=== PATIENT | female | born 1995 | race Hispanic/Latino ===

== ENCOUNTER → 2020-04-04 11:48 | Outpatient (CLI) | payer OTHER, SELFPAY ==
--- NOTE | 2020-04-04 11:49 | DI.US.S_ITS ---
PROCEDURE: US OB <= 14 WEEKS FETUS INDICATIONS: Initial US for Dating and Viability please OUTSIDE/PRIOR DATING DATA: Last menstrual period (LMP): 02/12/2020. LMP-based estimated date of delivery (KADE): 11/18/2020. First dating scan (date and location): 04/04/2020. Estimated date of delivery (KADE) from first dating scan: 11/23/2020. TECHNIQUE: Real-time scanning was performed of the fetus and maternal pelvic organs, with image documentation. COMPARISON: None. FINDINGS: Embryo: There is single intrauterine gestational sac with fetus seen. heart rate is 122 beats per minute. Ortley-rump length measures 7.9 mm. Estimated gestational age is 6 weeks, 5 days. Normal appearing yolk sac is seen. Measurement variability in dating: +/- 4 weeks by LMP, +/- 7 days by mean sac diameter (use before 6 weeks gestation if crown-rump length not able to be measured), +/- 5 days by crown-rump length (up to 8 weeks 6 days gestation), +/- 7 days by crown-rump length (up to 13 weeks 6 days gestation). Maternal organs: Right ovary is within normal limits. 3.4 x 2.4 x 2.8 cm possible corpus luteal cyst in left ovary is seen. IMPRESSION: 1. Single live intrauterine with fetus and yolk sac seen. heart rate is 122 beats per minute. Estimated gestational age is 6 weeks, 5 days. 2. Possible corpus luteal cyst in left ovary as above. Dictated by: Jacky Moreno M.D. on 04/04/2020 at 13:47 Approved by: Jacky Moreno M.D. on 04/04/2020 at 13:50
== END ==
PROVIDERS: Referring Provider Family Medicine; Visit Provider Family Medicine
DX: Z34.01 Encounter for supervision of normal first pregnancy, first trimester (principal); Z3A.01 Less than 8 weeks gestation of pregnancy
CPT/HCPCS: 76801

== ENCOUNTER → 2020-04-17 14:19 | Outpatient (CLI) | payer OTHER, SELFPAY ==
[2020-04-17 14:59] LABS: Appearance Urine UA CLEAR; Bilirubin Urine UA NEGATIVE (NEGATIVE); Color Urine UA YELLOW; Glucose Urine UA NEGATIVE (Negative); Ketones Urine UA NEGATIVE (NEGATIVE); Leukocyte Esterase Urine UA NEGATIVE (NEGATIVE); Nitrite Urine UA NEGATIVE (Negative); Occult Blood Urine UA NEGATIVE (Negative); Protein Urine UA NEGATIVE (Negative); Specific Gravity Urine UA 1.015 (1.000-1.035); Urobilinogen Urine UA 0.2 E.U./dL (0.2)
[2020-04-17 15:29] LABS: Add Manual Diff / Slide Review NO; Basophils Absolute Auto 100 /uL (0-100); Basophils Percent Auto 0.5 % (0-2); Eosinophils Absolute Auto 0 /uL (0-450); Eosinophils Percent Auto 0.3 % (2-4); Hematocrit 40.8 % (36-46); Hemoglobin 13.8 g/dL (12.0-16.0); Lymphocytes Absolute Auto 1800 /uL (1100-4500); Lymphocytes Percent Auto 14.6 % (25-40); Mean Corpuscular Hemoglobin 30.1 PG (26-34); Mean Corpuscular Volume 88.8 fL (80-100); Monocytes Absolute Auto 800 /uL (0-900); Monocytes Percent Auto 6.4 % (3-14); Neutrophils Absolute Auto 9500 /uL (1500-7000); Neutrophils Percent Auto 78.2 % (50-75); Platelet Count 265 X10^3/uL (150-400); Red Blood Cell Count 4.59 X10^6/uL (4.0-5.2); Red Cell Distribution Width 12.5 % (11.6-14.8); White Blood Cell Count 12.2 X10^3/uL (4.5-11.0)
[2020-04-17 16:32] LABS: Hepatitis B Surface Antigen NEGATIVE s/c (NEGATIVE)
[2020-04-17 16:43] LABS: HIV 1 & 2 Ab/Ag 4th Gen Combo NEGATIVE (NEGATIVE); Hep C Virus Ab w/Reflex Quant NEGATIVE s/c (NEGATIVE)
[2020-04-18 02:38] LABS: RPR Screen Non Reactive (Non Reactive)
[2020-04-18 06:18] LABS: Varicella IgG Antibody 3259 index (Immune >165)
== END ==
PROVIDERS: PCP Family Medicine; Referring Provider Family Medicine; Visit Provider Family Medicine
DX: Z34.01 Encounter for supervision of normal first pregnancy, first trimester (principal)
CPT/HCPCS: 36415; 80055; 81003; 86787; 86803; 86850; 86900; 86901; 87077; 87086; 87389

== ENCOUNTER → 2020-06-10 14:48 | Outpatient (CLI) | payer OTHER, SELFPAY ==
[2020-06-12 20:40] LABS: AFP, Serum 35.5 ng/mL (.); Estriol, Free 1.11 ng/mL (.); Inhibin A, Dimeric 115.64 pg/mL (.); Inhibin A, MoM 0.73 (.); Maternal Ethnicity Caucasian (.); Maternal Weight 146 lbs (.); Number of Fetuses No (.); OSBR Risk 1 IN 10000 (.); Results Report (.); Test Results *Screen Negative* (.); hCG, MoM 1.45 (.); hCG, Serum 48444 mIU/mL (.)
== END ==
PROVIDERS: PCP Family Medicine; Referring Provider Family Medicine; Visit Provider Family Medicine
DX: Z34.82 Encounter for supervision of other normal pregnancy, second trimester (principal); Z3A.17 17 weeks gestation of pregnancy
CPT/HCPCS: 36415; 82105; 82677; 84702; 86336

== ENCOUNTER → 2020-07-01 13:47 | Outpatient (CLI) | payer OTHER, SELFPAY ==
--- NOTE | 2020-07-01 13:48 | DI.US.S_ITS ---
PROCEDURE: US OB >= 14 WEEKS FETUS INDICATIONS: Anatomy scan OUTSIDE/PRIOR DATING DATA: Last menstrual period (LMP): 02/12/2020 . LMP-based estimated date of delivery (KADE): 11/18/2020 First dating scan (date and location): 02/01/2021 Estimated date of delivery (KADE) from first dating scan: 11/23/2020 TECHNIQUE: Real-time scanning was performed of the fetus, with image documentation and biometric measurements. COMPARISON: [facility], OB <= 14 WEEKS FETUS, 04/04/2020, 12:27. FINDINGS: General: A single living intrauterine gestation is present. Presentation: Vertex. Placenta: Placental position is anterior , without previa. Lower placental edge 2 cm or less from internal cervical os qualifies as low lying placenta. Amniotic fluid index: 4.9 cm, normal range is 5-24 cm. heart rate: 149 beats per minute. Maternal cervical canal: 4.2 cm long. Normal lower limit is 2.5 cm. Report any funneling of internal cervical os: % of canal length, shape (U or V), width or any U-shaped funneling. biometrics: Biparietal diameter: 4.5 cm 19 weeks 4 days Head circumference: 16.6 cm 19 weeks 2 days Abdominal circumference: 14.3 cm 19 weeks 4 days Femur length: 3.0 cm 19 weeks 2 days Estimated gestational age from initial scan: 19 weeks 2 days. Composite gestational age from present scan: 19 weeks 3 days Estimated weight and percentile: 295 g 57th percentile Measurement variability for biometric dating: +/- 7 days from 14 weeks to 15 weeks 6 days gestation, +/- 10 days from 16 weeks to 21 weeks 6 days gestation, +/- 2 weeks from 22 weeks to 27 weeks 6 days gestation, +/- 3 weeks for 28 weeks gestation or later. weight reference: 4500 g or EFW >90/95% is considered macrosomia or large for gestational age. EFW <10% is small for gestational age. EFW 5% or less is considered intra-uterine growth restriction. Anatomic survey: Neuro: Ventricles are non-dilated at less than 10 mm. Cisterna magna is normal at 3-11 mm. Cerebellum is normal in size and morphology. Nuchal skin fold: Normal at less than 6 mm between 14-21 weeks gestational age. Face: Nose and lips, facial profile are normal. Spine: No evidence for spina bifida. Heart: 4-chambered heart is present, with normal ventricular outflow tracts. Diaphragm: Diaphragm is intact. Stomach: Left-sided stomach is present. Kidneys: No hydronephrosis. Normal is less than 5 mm in 2nd trimester, less than 7 mm in 3rd trimester. Cord: 3-vessel cord has orthotopic insertion. Bladder: Normal in size. Extremities: All 4 extremities identified. IMPRESSION: 1. Single live intrauterine . 2. Anatomy is within normal limits. Dictated by: Elizabeth Lopez M.D. on 07/01/2020 at 17:42 Approved by: Elizabeth Lopez M.D. on 07/01/2020 at 17:44
== END ==
PROVIDERS: PCP Family Medicine; Referring Provider Family Medicine; Visit Provider Family Medicine
DX: Z36.89 Encounter for other specified antenatal screening (principal); Z3A.19 19 weeks gestation of pregnancy
CPT/HCPCS: 76811

== ENCOUNTER 2020-07-26 18:07 | Outpatient (CLI) | payer OTHER, SELFPAY ==
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
== END 2020-07-26 19:00 | disposition home or self-care (01) ==
LOC: LABOR 07-27 03:40 → OB 07-28 09:50
PROVIDERS: PCP Family Medicine; Referring Provider Family Medicine; Visit Provider Family Medicine
DX: O26.892 Other specified pregnancy related conditions, second trimester (principal); R10.30 Lower abdominal pain, unspecified; V43.52XA Car driver injured in collision with other type car in traffic accident, initial encounter; Z3A.23 23 weeks gestation of pregnancy
CPT/HCPCS: 59025; G0378; G0379

== ENCOUNTER → 2020-08-19 09:33 | Outpatient (CLI) | payer OTHER, SELFPAY ==
[2020-08-19 11:46] LABS: Hematocrit 37.7 % (36-46); Hemoglobin 12.7 g/dL (12.0-16.0)
[2020-08-19 12:08] LABS: GTT (PREG) 1 Hour PP 50gm Dose 139 mg/dL (76-139)
== END ==
PROVIDERS: PCP Family Medicine; Referring Provider Family Medicine; Visit Provider Family Medicine
DX: Z34.90 Encounter for supervision of normal pregnancy, unspecified, unspecified trimester (principal); Z3A.26 26 weeks gestation of pregnancy
CPT/HCPCS: 36415; 82950; 85014; 85018

== ENCOUNTER → 2020-09-11 12:55 | Outpatient (CLI) | payer OTHER, SELFPAY ==
--- NOTE | 2020-09-11 12:56 | DI.US.S_ITS ---
PROCEDURE: US OB LIMITED INDICATIONS: LARGE FOR DATES OUTSIDE/PRIOR DATING DATA: Last menstrual period (LMP): 02/12/2020. LMP-based estimated date of delivery (KADE): 11/18/2020 . First dating scan (date and location): 04/04/2020 . Estimated date of delivery (KADE) from first dating scan: 11/23/2020 . TECHNIQUE: Real-time scanning was performed of the fetus, with image documentation and biometric measurements. Endovaginal scanning: No COMPARISON: [facility], OB >= 14 WEEKS FETUS, 07/01/2020, 13:16. FINDINGS: General: A single living intrauterine gestation is present. Presentation: Vertex. Placenta: Placental position is anterior , without previa. Amniotic fluid index: 14 cm, normal range is 5-24 cm. heart rate: 137 beats per minute. Maternal cervical canal: 3.9 cm long. Normal lower limit is 2.5 cm. biometrics: Biparietal diameter: 31 weeks 1 day Head circumference: 30 weeks 6 days Abdominal circumference: 30 weeks 3 days Femur length: 27 weeks 6 days Estimated gestational age from initial scan: 29 weeks 4 days Composite gestational age from present scan: 30 weeks 1 day Estimated weight and percentile: 1446 g, 43rd percentile Measurement variability for biometric dating: +/- 7 days from 14 weeks to 15 weeks 6 days gestation, +/- 10 days from 16 weeks to 21 weeks 6 days gestation, +/- 2 weeks from 22 weeks to 27 weeks 6 days gestation, +/- 3 weeks for 28 weeks gestation or later. weight reference: 4500 g or EFW >90/95% is considered macrosomia or large for gestational age. EFW <10% is small for gestational age. EFW 5% or less is considered intra-uterine growth restriction. Other: Not applicable. IMPRESSION: Single living IUP redemonstrated and interval growth is within normal limits. Of note, femoral length is at the 5th percentile for age. Dictated by: Richie Nolan Russ Interpreted: Elizabeth Lopez MD on 09/11/2020 at 16:25 Transcribed by: EHSAN on 09/11/2020 at 16:26 Approved by: Elizabeth Lopez M.D. on 09/11/2020 at 18:58
== END ==
PROVIDERS: PCP Family Medicine; Referring Provider Family Medicine; Visit Provider Family Medicine
DX: Z36.88 Encounter for antenatal screening for fetal macrosomia (principal); Z3A.30 30 weeks gestation of pregnancy
CPT/HCPCS: 76815

== ENCOUNTER → 2020-10-23 09:43 | Outpatient (CLI) | payer OTHER, SELFPAY ==
[2020-10-24 11:57] LABS: Strep Grp B PCR NEG for Grp B Strep
== END ==
PROVIDERS: PCP Family Medicine; Visit Provider Family Medicine
DX: Z34.90 Encounter for supervision of normal pregnancy, unspecified, unspecified trimester (principal); Z3A.36 36 weeks gestation of pregnancy
CPT/HCPCS: 87653

== ENCOUNTER 2020-11-23 18:06 | Inpatient (IN) | payer OTHER, SELFPAY ==
[2020-11-23 19:16] VITALS: BP 118/70
[2020-11-23 19:48] LABS: COVID19 - ADMIT (NP swab/PCR) Negative (Negative)
[2020-11-23] MEDS: DINOPROSTONE VAG (CERVIDIL) 10 MG VAG (20:04)
[2020-11-23 21:00] LABS: Add Manual Diff / Slide Review NO; Basophils Absolute Auto 0 /uL (0-100); Basophils Percent Auto 0.3 % (0-2); Eosinophils Absolute Auto 100 /uL (0-450); Eosinophils Percent Auto 0.6 % (2-4); Hemoglobin 13.5 g/dL (12.0-16.0); Lymphocytes Absolute Auto 2000 /uL (1100-4500); Lymphocytes Percent Auto 18.4 % (25-40); Mean Corpuscular HGB Conc 34.6 % (30-36); Mean Corpuscular Hemoglobin 31.5 PG (26-34); Monocytes Absolute Auto 800 /uL (0-900); Monocytes Percent Auto 6.8 % (3-14); Neutrophils Absolute Auto 8200 /uL (1500-7000); Neutrophils Percent Auto 73.9 % (50-75); Platelet Count 169 X10^3/uL (150-400); Red Blood Cell Count 4.28 X10^6/uL (4.0-5.2); Red Cell Distribution Width 13.3 % (11.6-14.8); White Blood Cell Count 11.1 X10^3/uL (4.5-11.0)
[2020-11-23] MEDS: ZOLPIDEM 5 MG TABLET PO (21:49)
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
[2020-11-24] MEDS: LACTATED RINGERS 1,000 ML 100 ML IV ×2 (09:31→16:23)
[2020-11-24] MEDS: OXYTOCIN PREMIX 30 UNIT/500 ML PLAST..BAG IV (09:32)
--- NOTE | 2020-11-24 13:10 | PM.OBPNLAB ---
Date/Time Date Patient Seen: 11/24/20 Time Patient Seen: 12:50 Pain Control Pain control: tolerating well Comments: Rates pain 7/10, doing well with nitrous oxide. Pelvic Exam Dilation (cm): 5 Effacement (%): 90 station: -2 Amniotic membrane status: Ruptured (AROM thin meconium) Contractions Pitocin rate (mU/min): 2 Contraction frequency (min): 3 Contraction intensity: Mild Status status: Category l Heart Rate Baseline: 130 Monitor Accelerations: Present Monitor Decelerations: Absent Monitor Variability: Moderate Assessment and Plan Assessment: active labor Plan: continuous present management Comments: 24 year old at 40+6 weeks. Progressing well on minimal pitocin. AROM with thin meconium. Will shut off pitocin and see how she does after AROM. Restart if contractions space. Continue nitrous oxide prn.
[2020-11-24] MEDS: fentaNYL 100 MCG/2 ML INJ 50 MCG IV ×2 (16:02→23:17)
[2020-11-24] MEDS: FENT 2MCG/ML BUPIV 0.125% EPI 200 MCG/100 ML PLAST..BAG 10 MCG EPIDURAL (16:23)
--- NOTE | 2020-11-24 18:42 | PM.OBPNLAB ---
Date/Time Date Patient Seen: 11/24/20 Time Patient Seen: 18:42 Pain Control Pain control: epidural Comments: Doing much better with epidural after bolus. Denies pain. Pelvic Exam Dilation (cm): 6 Effacement (%): 95 station: -2 Amniotic membrane status: Ruptured (AROM thin meconium) Contractions Contraction frequency (min): 3 Status status: Category ll Heart Rate Baseline: 130 Monitor Accelerations: Present Monitor Decelerations: Early and Variable (resolved with position change) Assessment and Plan Comments: 24 year old at 40 weeks and 6 days gestation. SVE unchanged over 3 hours at 6 cm despite rupture of membranes. Will restart pitocin for an hour. If not progressing, will place IUPC.
--- NOTE | 2020-11-24 19:51 | PM.OBPNLAB ---
Date/Time Date Patient Seen: 11/24/20 Time Patient Seen: 19:30 Pain Control Pain control: epidural Pelvic Exam Dilation (cm): 6 Effacement (%): 95 station: -2 Amniotic membrane status: Ruptured (AROM thin meconium) Contractions Monitor mode: Internal Pitocin rate (mU/min): 3 Contraction frequency (min): 3 Status status: Category ll Heart Rate Baseline: 130 Monitor Accelerations: Present Monitor Decelerations: Early and Variable (Not recurrent) Monitor Variability: Moderate Assessment and Plan Comments: No cervical change, IUPC placed. Suspect acynclitic or OP. Continue peanut ball and frequent position change. Will titrate pitocin to adequate contractions. Discussed that if no change despite adequate contractions, will need to discuss .
--- NOTE | 2020-11-24 21:28 | PM.OBPNLAB ---
Date/Time Date Patient Seen: 11/24/20 Time Patient Seen: 21:15 Pain Control Pain control: epidural Pelvic Exam Dilation (cm): 6 Effacement (%): 95 station: -2 Amniotic membrane status: Ruptured (AROM thin meconium) Contractions Monitor mode: Internal Pitocin rate (mU/min): 3 Contraction frequency (min): 3 Status status: Category ll Heart Rate Baseline: 130 Monitor Accelerations: Present Monitor Decelerations: Variable Monitor Variability: Moderate Assessment and Plan Plan: Comments: 24-year-old 40 weeks and 6 days gestation with arrest of labor as well as frequent variable decelerations despite position change. Contractions are adequate with IUPC but no significant cervical change. Discussed the need for section with the patient and her . Risks reviewed including risk of bleeding, infection and injury to surrounding organs. The patient and her were given the opportunity to ask questions, all questions answered. Consent signed. Will give 2 g of Ancef prior to surgery.
--- NOTE | 2020-11-24 21:31 | PM.PREOP ---
Pre-operative Note COVID-19 COVID-19 status: Negative Result date/Date tested (Pos, Neg/Pending): 11/23/20 Interval Note History & Physical reviewed/Exam performed by Physician: Yes Changes to H&P: No
--- NOTE | 2020-11-24 22:10 | SUR.OPER ---
FHT's 154. Cord blood x 2 and placenta to OB with OB Rn.
[2020-11-24] MEDS: CEFAZOLIN 1 GM VIAL 2 GM IV (22:12)
--- NOTE | 2020-11-24 22:29 | SUR.OPER ---
TOB live male @ 4.
--- NOTE | 2020-11-24 22:30 | SUR.OPER ---
Supine on Padded OR bed, head on pillow, safety belt at thigh, arms secured on padded arm boards at <90 degrees abduction. Bump under right buttock. Legs uncrossed with pillow under knees, gel pad to heels, tape over blanket to lower legs.
[2020-11-24 23:13] VITALS: BP 100/53; PULSE 73; RESP 15; TEMP 36.7; O2SAT 98
[2020-11-24 23:18] VITALS: BP 91/53; PULSE 74; RESP 16; O2SAT 98
[2020-11-24 23:24] VITALS: BP 107/64; PULSE 72; RESP 14; O2SAT 99
--- NOTE | 2020-11-24 23:27 | P.OP_ITS ---
Operative Date/Time/Diagnoses Date of procedure: 11/24/20 Time of procedure: 22:01 Pre-op diagnosis: Arrest of first stage of labor intolerance of labor 40 weeks of Post-op diagnosis: same Procedure & Clinicians Procedure: Primary low-transverse section Same procedure as scheduled: Yes Indications: Arrest of first stage of labor intolerance of labor 40 weeks of Surgeon: Yulia Rahman Harnessmaker Apprentice: Racquel Cadet Reason for Harnessmaker Apprentice: Dr. Cadet was present throughout the case to assist with retraction, fundal pressure to deliver the , suturing half the fascia and closure of skin. Anesthesia Type: General and Epidural Operative Notes Findings: Normal uterus, tubes and ovaries. Male infant weighing 7 lb 2.8 oz with Apgars of 8 and 9. Closure Type: primary Specimen(s): cord blood Intraoperative meds administered: Pitocin Applied: Catheter Estimated Blood Loss (mL): 750 Procedure in detail: The patient was taken to the operating room and place in the dorsal supine position with a leftward tilt. She was prepped and draped in the usual sterile fashion. A timeout was performed. Epidural analgesia was found to be inadequate so the decision was made for general anesthesia. Dr. Rahman made a Pfannenstiel skin incision 2 fingerbreadths above the pubic symphysis and carried through to the underlying layer fascia. The fascia was nicked in the midline and the incision extended bilaterally with Guy scissors. The superior aspect of the fascial incision was grasped with a Mart clamps by Dr. Rahman and Dr. Cadet, elevated, and the underlying rectus muscles dissected off sharply and bluntly. Attention was then turned to the inferior aspect of this incision which in a similar fashion was grasped with a Mart clamps, elevated, and the underlying rectus muscles dissected off sharply and bluntly. The rectus muscles were in the midline. The peritoneum was identified, grasped between 2 hemostats, and entered sharply with the Metzenbaum scissors. This incision was extended superiorly and inferiorly with good visualization of the bladder. The bladder blade was inserted. The vesicouterine peritoneum was identified, grasped with the pickup, and entered sharply with the Metzenbaum scissors. This incision was extended bilaterally, and the bladder flap was created digitally. The bladder blade was reinserted. The lower uterine segment was incised in a transverse fashion with the scalpel. Upon entering the amniotic sac there was a small amount of meconium stained amniotic fluid. The infant's head was delivered with vacuum assistance. A double nuchal cord was reduced. The remainder of the body delivered without difficulty. The cord was double clamped and cut. The was handed off to waiting RN and RT. The placenta was delivered manually. The uterus was cleared of all clots and debris. The uterine incision was repaired with #1 chromic in a running interlocking fashion by Dr. Rahman. A second layer the same suture was used for an imbricating layer. Hemostasis was achieved. The tubes and ovaries were examined and were found to be normal. The gutters were cleared of all therese ts and debris. The bladder flap was reapproximated using 2-0 Vicryl in a running fashion by Dr. Rahman. The parietal peritoneum was closed using 2-0 Vicryl in a running fashion by Dr. Rahman. The fascia was reapproximated using 0 Vicryl in a running fashion, Dr Rahman doing the right side and Dr. Cadet doing the left side. Subcutaneous layer was copiously irrigated with warm normal saline. Dr. Cadet placed 3 simple interrupted sutures of 3-0 Vicryl to reapproximate the subcutaneous layer. The skin was closed with 4-0 undyed Vicryl in a subcuticular fashion by Dr. Cadet. Steri-Strips were placed. An Aquacel dressing was placed. The uterus was expressed of a small amount of old blood. Sponge, lap, and instrument counts were correct. The patient tolerated the procedure well, and was taken to PACU in stable condition. Baby 1: Infant Gender: Male Presentation: vertex Position: Occiput Posterior Placental Delivery Description: Manual Removal Cord Vessel Description: 3 Vessels score (1 min): 8 score (5 min): 9 weight: 7 lb 2.817 oz Post-operative Condition: stable Disposition: PACU Aftercare: routine postop
[2020-11-24 23:35] VITALS: BP 112/63; PULSE 74; RESP 16; O2SAT 99
[2020-11-25] MEDS: ACETAMINOPHEN 325 MG TABLET 650 MG PO ×4 (01:00→21:37)
[2020-11-25] MEDS: fentaNYL 100 MCG/2 ML INJ 50 MCG IV ×2 (01:00→04:25)
[2020-11-25] MEDS: OXYCODONE IR 10 MG TABLET PO ×3 (01:24→20:25)
[2020-11-25 09:13] VITALS: TEMP 37.1
[2020-11-25] MEDS: KETOROLAC 30 MG/ML VIAL IV ×3 (09:13→21:33)
[2020-11-25 09:14] VITALS: TEMP 37.1
[2020-11-25] MEDS: DOCUSATE 100 MG CAPSULE 200 MG PO (09:15)
[2020-11-25] MEDS: PRENATAL VIT,CALC/IRON/FOLIC 1 TABLET 1 TAB PO (09:15)
[2020-11-25] MEDS: LACTATED RINGERS 1,000 ML 100 ML IV (11:00)
[2020-11-25 11:26] LABS: Hematocrit 32.3 % (36-46); Hemoglobin 10.7 g/dL (12.0-16.0)
--- NOTE | 2020-11-25 13:16 | PM.OBPN.1 ---
Subjective - OB Subjective Patient comments: tolerating diet and flatus present baby status: doing well and nursing well Narrative: Pain has been difficult since delivery but she is doing much better after toradol, Tylenol and oxycodone. Pain is with cramping, not incisional. Tolerating a diet and passing gas. Not yet out of bed, still has catheter. Baby has latched well twice. Date Patient Seen: 11/25/20 Time Patient Seen: 12:45 Exam Vital Signs (past 8 hours): - 11/25/20 09:13 11/25/20 09:14 Temperature 98.8 F 98.8 F Oxygen Delivery Method Room Air Temperature 98.8? blood pressure 106/54 heart rate 72 respirations 16 Narrative Exam Narrative: General: Awake and alert, no acute distress. HEENT: NCAT, EOMI, moist oral mucosa CV: Regular rate and rhythm, no murmurs, rubs or gallops Lungs: CTAB, no wheezes, rales, or rhonchi Abdomen: Aquacel dressing intact with minimal drainage. Soft, nontender; bowel tones active; uterus firm 1 cm below umbilicus. Extremities: Warm, no edema bilaterally, 2+ pedal pulses bilaterally Objective Labs Result Diagrams: 11/25/20 08:50 Labs: Laboratory Results - last 24 hr 11/25/20 08:50 Hgb 10.7 L Hct 32.3 L Assessment & Plan Assessment and Plan (1) Arrested active phase of labor: Status: Acute (2) S/P : Status: Acute Plan day: 1 plan OB: routine postop care Comments: 24-year-old day 1 after primary low-transverse section for arrest of first stage of labor as well as intolerance. Pain was initially difficult to control but better now with Toradol, oxycodone and Tylenol. Discussed expectations to get out of bed later today and removed urinary catheter. She is off to a good start , no issues in the . Time Spent With Patient Time: Total time spent is greater than 50% in coordination of care (as documented) at patient's floor/unit and/or counseling patient: Time with patient: 15-24 minutes
[2020-11-25] MEDS: OXYCODONE IR 5 MG TABLET PO ×2 (13:20→16:51)
[2020-11-25 15:23] VITALS: TEMP 37.4
[2020-11-25 15:24] VITALS: TEMP 37.4
[2020-11-25 16:51] VITALS: TEMP 37.2
[2020-11-25] MEDS: LANOLIN OINT 7 GM 1 APPLIC TOP (20:24)
[2020-11-25 20:25] VITALS: TEMP 36.6
[2020-11-26] MEDS: OXYCODONE IR 10 MG TABLET PO ×2 (00:57→11:45)
[2020-11-26] MEDS: ACETAMINOPHEN 325 MG TABLET 650 MG PO ×2 (03:16→09:33)
[2020-11-26] MEDS: IBUPROFEN 600 MG TABLET PO ×2 (05:51→11:44)
[2020-11-26] MEDS: DOCUSATE 100 MG CAPSULE 200 MG PO (09:33)
[2020-11-26] MEDS: PRENATAL VIT,CALC/IRON/FOLIC 1 TABLET 1 TAB PO (09:33)
--- NOTE | 2020-11-26 11:18 | P.DS_ITS ---
Discharge Providers Provider Date of admission: 11/23/20 18:06 Discharge Date: 11/26/20 Primary care physician: Racquel Cadet DO Consults: 11/25/20 08:50 Consult to Adapted Physical Education Specialist Routine Comment: Discharge provider: Racquel Cadet DO Summary Hospital Course Date Patient Seen: 11/26/20 Time Patient Seen: 10:30 Diagnoses: 40 weeks of Arrest of labor intolerance labor Primary section Hospital Course: Patient is a 24-year-old G1 now P1 eating after primary section 40 weeks and 6 days gestation. Patient presented for post-dates induction. She progressed well initially with minimal Pitocin and artificial rupture membranes but stalled at 6 cm. IUPC was placed, contractions found to be adequate however no significant cervical change with increasing variable decelerations. The decision was made to proceed with primary section for arrest of labor and intolerance of labor. Epidural was in adequate so she underwent general anesthesia. Surgery was uncomplicated otherwise. Infant was found to be in the direct occiput posterior position with double nuchal cord. Apgars were 8 and 9. Remainder of course uncomplicated. Pain controlled with ibuprofen and oxycodone. Patient was ambulating, voiding, passing flatus and eating. Vaginal bleeding was light. was going well the time of discharge without concerns for the . Patient will follow-up in 1 week for Aquacel dressing removal. She was advised to call for fevers, sick bleeding through more than Peripartum Data Infant Delivery Method: Section [place] 1: Gender: Male Disposition of : home Discharge Diagnosis (1) Arrested active phase of labor: Status: Acute (2) S/P : Status: Acute Status at Discharge Cognitive/behavioral status at discharge: at baseline, oriented Functional status at discharge: independent ambulation Overall status at discharge: patient is progressing back to baseline Time Spent with Patient Time attestation: Total time spent providing and/or coordinating discharge services: Time spent: Less than 30 minutes Objective Labs Result Diagrams: 11/25/20 08:50 Labs: Laboratory Results - last 24 hr 11/25/20 08:50 Hgb 10.7 L Hct 32.3 L Exam Vital Signs (past 8 hours): Oxygen Delivery Method Room Air Temperature 99.0? blood pressure 107/58 heart rate 74 respirations 16 Narrative Exam Narrative: General: Awake and alert, no acute distress. HEENT: NCAT, EOMI, moist oral mucosa CV: Regular rate and rhythm, no murmurs, rubs or gallops Lungs: CTAB, no wheezes, rales, or rhonchi Abdomen:? Aquacel dressing intact with minimal drainage.? Soft, nontender; bowel tones active; uterus firm 1 cm below umbilicus. Extremities: Warm, no edema bilaterally, 2+ pedal pulses bilaterally Discharge Plan Discharge Plan Patient Disposition: Home Discharge orders & Medications Prescriptions: New docusate sodium 100 mg Capsule 200 mg PO DAILY Qty: 30 RF: 0 ibuprofen 600 mg Tablet 600 mg PO Q6H PRN (Reason: Fever/Mild Pain (1-3)) Qty: 30 RF: 0 oxycodone 5 mg Tablet 5 mg PO Q4H PRN (Reason: Pain, Moderate (4-6)) Qty: 20 RF: 0 Continued prenat.vits,gemini,[id number] Tablet 1 tab PO DAILY RF: 0 Follow up/Referrals: Racquel Cadet DO [Primary Care Provider] - 12/02/20 11:45 am Visit Report/Discharge Packet Stand Alone Forms: Discharge: Care Visit Report Forms: Patient Portal/API, Stroke Signs & Symptoms Discharge Data Primary Care Provider: Racquel Cadet Discharges patient from system. Discharge Date/Time: 11/26/20 14:55
[2020-11-26 11:23] VITALS: BP 112/63; PULSE 74; RESP 16; TEMP 36.6
[2020-11-26 11:29] VITALS: BP 104/67; PULSE 68; RESP 15; TEMP 36.8
== END 2020-11-26 14:55 | disposition home or self-care (01) | DRG 788 ==
PROVIDERS: Admitting Provider Family Medicine; PCP Family Medicine; Referring Provider Family Medicine; Visit Provider Family Medicine
PROC: (CPT 59514; principal; 2020-11-24 22:00)
DX: O63.0 Prolonged first stage (of labor) (principal); Z3A.40 40 weeks gestation of pregnancy; Z37.0 Single live birth; O48.0 Post-term pregnancy; O77.0 Labor and delivery complicated by meconium in amniotic fluid; O76 Abnormality in fetal heart rate and rhythm complicating labor and delivery; Z20.822 Contact with and (suspected) exposure to COVID-19
CPT/HCPCS: 01967; 01968; 36415; 59200; 59510; 59514; 85014; 85018; 85025; 86850; 86900; 86901; 87635; C9803; G0379; J0330; J0690; J1100; J1885; J2405; J2590; J2704; J3010

== ENCOUNTER → 2021-12-04 14:08 | Outpatient (CLI) | payer OTHER, SELFPAY ==
[2021-12-04 15:12] LABS: Add Manual Diff / Slide Review NO; Basophils Absolute Auto 0 /uL (0-100); Basophils Percent Auto 0.3 % (0-2); Eosinophils Absolute Auto 100 /uL (0-450); Eosinophils Percent Auto 0.5 % (2-4); Hematocrit 39.2 % (36-46); Hemoglobin 13.4 g/dL (12.0-16.0); Lymphocytes Absolute Auto 2600 /uL (1100-4500); Lymphocytes Percent Auto 18.6 % (25-40); Mean Corpuscular HGB Conc 34.2 % (30-36); Mean Corpuscular Hemoglobin 29.8 PG (26-34); Mean Corpuscular Volume 87.1 fL (80-100); Monocytes Absolute Auto 900 /uL (0-900); Monocytes Percent Auto 6.3 % (3-14); Neutrophils Absolute Auto 10200 /uL (1500-7000); Neutrophils Percent Auto 74.3 % (50-75); Platelet Count 263 X10^3/uL (150-400); Red Cell Distribution Width 13.2 % (11.6-14.8); White Blood Cell Count 13.8 X10^3/uL (4.5-11.0)
[2021-12-04 16:12] LABS: Appearance Urine UA CLEAR; Bilirubin Urine UA NEGATIVE (NEGATIVE); Color Urine UA YELLOW; Glucose Urine UA NEGATIVE (Negative); Ketones Urine UA NEGATIVE (NEGATIVE); Leukocyte Esterase Urine UA NEGATIVE (NEGATIVE); Nitrite Urine UA NEGATIVE (Negative); Occult Blood Urine UA NEGATIVE (Negative); Protein Urine UA NEGATIVE (Negative); Urobilinogen Urine UA 0.2 E.U./dL (0.2)
[2021-12-04 16:20] LABS: pH Urine UA 6.5 (4.5-8.0)
[2021-12-06 12:28] LABS: RPR Screen Non Reactive (Non Reactive); Varicella IgG Antibody 1927 index (Immune >165)
[2021-12-07 18:26] LABS: Hepatitis B Surface Antigen NEGATIVE s/c (NEGATIVE)
[2021-12-07 18:38] LABS: HIV 1 & 2 Ab/Ag 4th Gen Combo NEGATIVE (NEGATIVE); Hep C Virus Ab w/Reflex Quant NEGATIVE s/c (NEGATIVE)
== END ==
PROVIDERS: PCP Family Medicine; Referring Provider Family Medicine; Visit Provider Family Medicine
DX: Z34.81 Encounter for supervision of other normal pregnancy, first trimester (principal)
CPT/HCPCS: 36415; 80055; 81003; 86787; 86803; 86850; 86900; 86901; 87086; 87389

== ENCOUNTER → 2022-02-01 13:53 | Outpatient (CLI) | payer OTHER, SELFPAY ==
--- NOTE | 2022-02-01 13:55 | DI.US.S_ITS ---
PROCEDURE: US OB >= 14 WEEKS FETUS INDICATIONS: Anatomy OUTSIDE/PRIOR DATING DATA: Last menstrual period (LMP): 09/19/21. LMP-based estimated date of delivery (KADE): 06/26/22. First dating scan (date and location): Current study, 02/01/22. Estimated date of delivery (KADE) from first dating scan: 06/29/22. The calculations are made using the clinical KADE of 06/26/22. TECHNIQUE: Real-time scanning was performed of the fetus, with image documentation and biometric measurements. Endovaginal scanning: Not performed COMPARISON: [facility], OB >= 14 WEEKS FETUS, 07/01/2020, 13:16. FINDINGS: General: A single living intrauterine gestation is present. Presentation: Vertex. Placenta: Placental position is posterior , without previa. Amniotic fluid index: 14.5 cm, normal range is 5-24 cm. Single deepest vertical pocket is 4.3 cm. heart rate: 145 beats per minute. Maternal cervical canal: Closed and 3.7 cm long. Normal lower limit is 2.5 cm. biometrics: Biparietal diameter: 4.3 cm, 19 weeks, 0 days Head circumference: 16.1 cm, 18 weeks, six days Abdominal circumference: 13.5 cm, 19 weeks, 0 days Femur length: 2.8 cm, 18 weeks, three days Clinically estimated gestational age: 19 weeks, three days Composite gestational age from present scan: 18 weeks, six days Estimated weight and percentile: 255 g, 14th percentile Anatomic survey: Neuro: Ventricles are non-dilated at less than 10 mm. Cisterna magna is normal at 3-11 mm. Cerebellum is normal in size and morphology. Nuchal skin fold: Normal at less than 6 mm between 14-21 weeks gestational age. Face: Nose and lips, facial profile are normal. Spine: No evidence for spina bifida. Heart: 4-chambered heart is present, with normal ventricular outflow tracts. Diaphragm: Diaphragm is intact. Stomach: Left-sided stomach is present. Kidneys: No hydronephrosis. Normal is less than 5 mm in 2nd trimester, less than 7 mm in 3rd trimester. Cord: 3-vessel cord has orthotopic insertion. Bladder: Normal in size. Extremities: All 4 extremities identified. IMPRESSION: 1. Single living intrauterine with appropriate growth. 2. Normal anatomy. 3. Closed cervix and normal amniotic fluid volume. We strive to produce accurate, complete, and clear reports of imaging services. To assist us in improving patient care, this report was composed using standard report templates and voice recognition software. Therefore, it may contain abnormal punctuation, insertions and/or omissions. Occasional wrong-word or sound-alike substitutions may occur. Though we review the report and make efforts to correct it, we do recommend that the report be read carefully in proper context to recognize any text inaccuracies. Dictated by: Josie Garza M.D. on 02/02/2022 at 13:32 Approved by: Josie Garza M.D. on 02/02/2022 at 13:39
== END ==
PROVIDERS: PCP Family Medicine; Referring Provider Family Medicine; Visit Provider Family Medicine
DX: Z34.92 Encounter for supervision of normal pregnancy, unspecified, second trimester (principal); Z3A.18 18 weeks gestation of pregnancy
CPT/HCPCS: 76811

== ENCOUNTER → 2022-02-05 09:08 | Outpatient (CLI) | payer OTHER, SELFPAY ==
[2022-02-08 18:14] LABS: Estriol, Free 2.46 ng/mL (.); Inhibin A, Dimeric 164.86 pg/mL (.); Inhibin A, MoM 0.93 (.); Maternal Ethnicity Other (.); Maternal Weight 157 lbs (.); Number of Fetuses No (.); OSBR Risk 1 IN 10000 (.); Results Report (.); Test Results *Screen Negative* (.); hCG, MoM 0.71 (.); hCG, Serum 18391 mIU/mL (.)
== END ==
PROVIDERS: PCP Family Medicine; Referring Provider Family Medicine; Visit Provider Family Medicine
DX: Z13.79 Encounter for other screening for genetic and chromosomal anomalies (principal); Z3A.18 18 weeks gestation of pregnancy
CPT/HCPCS: 36415; 82105; 82677; 84702; 86336

== ENCOUNTER → 2022-02-26 13:21 | Outpatient (CLI) | payer OTHER, SELFPAY ==
--- NOTE | 2022-02-26 13:22 | DI.RAD.S_ITS ---
PROCEDURE: XR FINGER RT MIN 2V INDICATIONS: Swollen Finger TECHNIQUE: AP hand, 2 views of the right 5th finger(s) acquired. COMPARISON: None. FINDINGS: Bones: There is a healing fracture of the head of the 5th metacarpal. No other fracture is identified. Mild dorsal angulation is seen. Soft tissues: No suspicious soft tissue calcifications. IMPRESSION: Healing boxer's fracture of the right 5th metacarpal head with surrounding callus formation. Dictated by: Jakob Webber M.D. on 02/26/2022 at 16:24 Approved by: Jakob Webber M.D. on 02/26/2022 at 16:25
== END ==
PROVIDERS: PCP Family Medicine; Referring Provider Family Medicine; Visit Provider Family Medicine
DX: S62.396D Other fracture of fifth metacarpal bone, right hand, subsequent encounter for fracture with routine healing (principal); X58.XXXD Exposure to other specified factors, subsequent encounter
CPT/HCPCS: 73140

== ENCOUNTER → 2022-04-08 09:49 | Outpatient (CLI) | payer OTHER, SELFPAY ==
[2022-04-08 11:30] LABS: Hematocrit 36.8 % (36-46); Hemoglobin 12.6 g/dL (12.0-16.0)
[2022-04-08 12:07] LABS: GTT (PREG) 1 Hour PP 50gm Dose 127 mg/dL (76-139)
== END ==
PROVIDERS: PCP Family Medicine; Referring Provider Family Medicine; Visit Provider Family Medicine
DX: Z34.80 Encounter for supervision of other normal pregnancy, unspecified trimester; Z3A.28 28 weeks gestation of pregnancy
CPT/HCPCS: 36415; 82950; 85014; 85018

== ENCOUNTER 2022-04-29 17:44 | Outpatient (CLI) | payer OTHER, SELFPAY ==
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
== END 2022-04-29 18:40 | disposition home or self-care (01) ==
LOC: LABOR 17:47 → OB 05-03 08:21
PROVIDERS: PCP Family Medicine; Referring Provider Family Medicine; Visit Provider Family Medicine
DX: O26.893 Other specified pregnancy related conditions, third trimester (principal); R10.32 Left lower quadrant pain; Z3A.31 31 weeks gestation of pregnancy
CPT/HCPCS: 59025; G0378; G0379

== ENCOUNTER 2022-05-07 17:59 | Observation (INO) | payer OTHER, SELFPAY ==
[2022-05-07] MEDS: LACTATED RINGERS 1,000 ML 120 ML IV (18:30)
[2022-05-07] MEDS: ONDANSETRON 4 MG/2 ML INJ IV (18:45)
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
== END 2022-05-07 19:45 | disposition home or self-care (01) ==
PROVIDERS: Admitting Provider Family Medicine; PCP Family Medicine; Referring Provider Family Medicine; Visit Provider Family Medicine
DX: O47.03 False labor before 37 completed weeks of gestation, third trimester (principal); O26.893 Other specified pregnancy related conditions, third trimester; R11.2 Nausea with vomiting, unspecified; Z3A.32 32 weeks gestation of pregnancy
CPT/HCPCS: 59025; 59050; 96360; G0378; G0379; J2405

== ENCOUNTER → 2022-05-17 16:37 | Outpatient (CLI) | payer OTHER, SELFPAY ==
--- NOTE | 2022-05-17 16:38 | DI.US.S_ITS ---
PROCEDURE: US OB LIMITED INDICATIONS: SIZE < DATES OUTSIDE/PRIOR DATING DATA: Last menstrual period (LMP): 09/19/2021. LMP-based estimated date of delivery (KADE): 06/26/2022. First dating scan (date and location): 02/01/2022. Estimated date of delivery (KADE) from first dating scan: 06/29/2022. The calculations are made using the ultrasound KADE of 06/29/2022. TECHNIQUE: Real-time scanning was performed of the fetus, with image documentation. COMPARISON: [facility], OB LIMITED, 09/11/2020, 13:28. [facility], OB >= 14 WEEKS FETUS, 02/01/2022, 14:07. FINDINGS: A single living intrauterine gestation is present. Presentation: Vertex. Placenta: Placental position is posterior, without previa. Amniotic fluid index: 15.7 cm, normal range is 5-24 cm. Single deepest vertical pocket is 5.5 cm. heart rate: 147 beats per minute. Maternal cervical canal: 3.7 cm long. Normal lower limit is 2.5 cm. Estimated gestational age from current exam: 33 weeks 0 days Estimated gestational age from initial scan: 34 weeks 2 days BPD: 8.3 cm 33 weeks 2 days HC: 29.8 cm 33 weeks 0 days AC: 30.3 cm 34 weeks 2 days Estimated weight 2170 g, 19th percentile FL 6.0 cm 31 weeks 4 days. IMPRESSION: Single live intrauterine with ultrasound gestational age today of 33 weeks 0 days compared to 34 weeks 2 days from initial ultrasound. Anatomy is within normal limits. Dictated by: Elizabeth Lopez M.D. on 05/18/2022 at 16:15 Approved by: Elizabeth Lopez M.D. on 05/18/2022 at 16:18
== END ==
PROVIDERS: PCP Family Medicine; Referring Provider Family Medicine; Visit Provider Family Medicine
DX: O26.843 Uterine size-date discrepancy, third trimester (principal); Z3A.33 33 weeks gestation of pregnancy
CPT/HCPCS: 76815

== ENCOUNTER → 2022-06-16 16:27 | Outpatient (CLI) | payer OTHER, SELFPAY ==
[2022-06-17 16:30] LABS: Strep Grp B PCR NEG for Grp B Strep
== END ==
PROVIDERS: PCP Family Medicine; Visit Provider Family Medicine
DX: Z34.93 Encounter for supervision of normal pregnancy, unspecified, third trimester (principal); Z3A.39 39 weeks gestation of pregnancy
CPT/HCPCS: 87653

== ENCOUNTER 2022-06-25 05:42 | Inpatient (IN) | payer OTHER, SELFPAY ==
[2022-06-25 06:42] LABS: Add Manual Diff / Slide Review NO; Basophils Absolute Auto 0 /uL (0-100); Basophils Percent Auto 0.4 % (0-2); Eosinophils Absolute Auto 100 /uL (0-450); Eosinophils Percent Auto 0.9 % (2-4); Hematocrit 37.4 % (36-46); Hemoglobin 13.1 g/dL (12.0-16.0); Lymphocytes Absolute Auto 2300 /uL (1100-4500); Lymphocytes Percent Auto 20.6 % (25-40); Mean Corpuscular Volume 88.5 fL (80-100); Monocytes Absolute Auto 800 /uL (0-900); Monocytes Percent Auto 7.3 % (3-14); Neutrophils Absolute Auto 7800 /uL (1500-7000); Neutrophils Percent Auto 70.8 % (50-75); Platelet Count 154 X10^3/uL (150-400); Red Blood Cell Count 4.22 X10^6/uL (4.0-5.2); Red Cell Distribution Width 13.3 % (11.6-14.8)
[2022-06-25] MEDS: LACTATED RINGERS 1,000 ML 999 ML IV (07:16)
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
--- NOTE | 2022-06-25 07:36 | PM.PREOP ---
Pre-operative Note Interval Note History & Physical reviewed/Exam performed by Physician: Yes Changes to H&P: No
[2022-06-25] MEDS: CEFAZOLIN 2 GM/100 ML PREMIX 100 ML IV (07:51)
[2022-06-25] MEDS: ACETAMINOPHEN IV 1,000 MG/100 ML VIAL 400 MG IV (08:00)
--- NOTE | 2022-06-25 08:27 | SUR.OPER ---
Prior to case, FHR 133. Viable baby boy born at 0817. Placenta delivered at 0820. 9/9. Cird, blood, and placenta given to OB RN.
[2022-06-25] MEDS: METHYLERGONOVINE 0.2 MG/ML VIAL IM (08:35)
[2022-06-25 09:04] VITALS: BP 130/51; PULSE 64; RESP 13; TEMP 36.1; O2SAT 100
--- NOTE | 2022-06-25 09:06 | PM.OBCS.1 ---
Operative Date/Time/Diagnoses Date of procedure: 06/25/22 Time of procedure: 07:45 Pre-op diagnosis: 39w6d gestation Hx of prior GBS negative Rh positive Post-op diagnosis: same Procedure & Clinicians Procedure: Repeat Same procedure as scheduled: Yes Indications: Hx of prior Surgeon: Reba Ramirez Marketing Development Manager: Racquel Cadet Anesthesia Type: Spinal Operative Notes Findings: Normal uterus, ovaries, and tubes Closure Type: primary Specimen(s): cord blood Intraoperative meds administered: Acetaminophen, Ketorolac, Methergine and Pitocin Applied: Catheter Estimated Blood Loss (mL): 500 Blood products transfused: none Procedure in detail: OPERATIVE COURSE: The patient was taken to the operating room where []spinal anesthesia was placed. She was then prepared and draped in the normal sterile fashion in the dorsal supine position with a leftward tilt. Anesthesia was tested and found to be adequate. A Pfannensteil skin incision was then made with the scalpel and carried through to the underlying layer of fascia with the bovie[]scalpel. The fascia was incised in the midline and the incision extended laterally with the Guy scissors. The superior aspect of the fascial incision was then grasped with Mart clamps, elevated with the help of the surgical oncologist, and the underlying rectus muscles dissected off bluntly and sharply where needed. Attention was then turned to the inferior aspect of the incision which, in a similar fashion, was grasped, tented up with Mart clamps, and the rectus muscle dissected off bluntly and sharply with Guy scissors. The rectus muscles were then in the midline, and the peritoneum was identified and entered bluntly. The peritoneal incision was then extended with good visualization of the bladder. Retraction was provided by the surgical oncologist. The bladder blade was then inserted and the vesicouterine peritoneum identified, grasped with pick-ups and entered sharply with the Metzenbaum scissors. The incision was then extended laterally and the bladder flap created digitally. The bladder blade was then reinserted and the lower uterine segment incised in a transverse fashion with the scalpel, with the surgical oncologist providing suction. The uterine incision was then extended superolaterally by pulling superolaterally on both sides. Membranes were ruptured and fluid was clear. The bladder blade was removed the 's head was flexed out of OT position and delivered atraumatically, with fundal pressure by the surgical oncologist. The nose and mouth were suctioned with bulb suction and the cord was clamped and cut. The was handed off to the waiting nursing staff. Cord blood was collected for Rh status. The placenta was then delivered with gentle cord traction. The uterus was then exteriorized and cleared of all clots and debris. The uterine incision was repaired with O-Vicryl in a running, locked fashion. A second layer of the same suture was used to obtain excellent hemostasis. The uterus was noted to still be soft with massage, and methergine was given with good response in tone. The uterus was returned to the abdomen. The gutters were cleared of all clots. Hysterotomy was investigated and found to be hemostatic. The bladder flap was closed with 2-O Chromic. The peritoneum was closed with 3-O Vicryl. The fascia was reapproximated with O-Vicryl in a running fashion. The subcutaneous tissue was reapproximated with 3-O Vicryl. The skin was closed with 4-O Vicryl. The surgical oncologist helped with retraction during closures. SPONGE AND NEEDLE COUNTS: Correct x3. DRESSING: Aquacel ANTICOAGULATION: SCDs applied prior to Surgery Preop antibiotics given (see MAR). The patient was taken to recovery room having tolerated procedure well. Complications: none Baby 1: Gender: Male Presentation: vertex Position: Left Occiput Transverse Placental Delivery Description: Spontaneous Cord Vessel Description: 3 Vessels score (1 min): 9 score (5 min): 9 Post-operative Condition: stable Disposition: PACU Aftercare: routine postop
[2022-06-25 09:10] VITALS: BP 105/61; PULSE 100; RESP 12; O2SAT 96
[2022-06-25] MEDS: KETOROLAC 30 MG/ML VIAL IV ×3 (09:15→21:40)
[2022-06-25 09:20] VITALS: BP 142/61; PULSE 67; RESP 16; TEMP 36.7; O2SAT 96
[2022-06-25 10:08] VITALS: BP 120/66
[2022-06-25] MEDS: LACTATED RINGERS 1,000 ML 100 ML IV (12:50)
[2022-06-25] MEDS: ACETAMINOPHEN 325 MG TABLET 650 MG PO (19:32)
[2022-06-26 01:47] VITALS: BP 120/66; PULSE 67; RESP 16; TEMP 36.7
[2022-06-26] MEDS: ACETAMINOPHEN 325 MG TABLET 650 MG PO ×3 (03:44→14:16)
[2022-06-26] MEDS: KETOROLAC 30 MG/ML VIAL IV (03:45)
[2022-06-26 06:33] LABS: Add Manual Diff / Slide Review NO; Basophils Absolute Auto 0 /uL (0-100); Basophils Percent Auto 0.4 % (0-2); Eosinophils Absolute Auto 100 /uL (0-450); Eosinophils Percent Auto 0.4 % (2-4); Hematocrit 33.7 % (36-46); Hemoglobin 11.6 g/dL (12.0-16.0); Lymphocytes Absolute Auto 1700 /uL (1100-4500); Lymphocytes Percent Auto 13.4 % (25-40); Mean Corpuscular HGB Conc 34.5 % (30-36); Mean Corpuscular Hemoglobin 30.8 PG (26-34); Mean Corpuscular Volume 89.2 fL (80-100); Monocytes Absolute Auto 1000 /uL (0-900); Monocytes Percent Auto 7.6 % (3-14); Neutrophils Absolute Auto 10100 /uL (1500-7000); Neutrophils Percent Auto 78.2 % (50-75); Platelet Count 156 X10^3/uL (150-400); Red Blood Cell Count 3.78 X10^6/uL (4.0-5.2); Red Cell Distribution Width 13.4 % (11.6-14.8); White Blood Cell Count 12.9 X10^3/uL (4.5-11.0)
[2022-06-26] MEDS: PRENATAL VIT,CALC/IRON/FOLIC 1 TABLET 1 TAB PO (09:18)
[2022-06-26] MEDS: DOCUSATE 100 MG CAPSULE PO (09:18)
[2022-06-26] MEDS: IBUPROFEN 600 MG TABLET PO ×2 (09:18→14:16)
--- NOTE | 2022-06-26 10:56 | P.DS_ITS ---
Discharge Providers Provider Date of admission: 06/25/22 05:42 Discharge Date: 06/26/22 Primary care physician: Racquel Cadet DO Consults: 06/25/22 10:01 Consult to Flap Lining Binder Routine Comment: Discharge provider: Reba Ramirez MD Summary Hospital Course Date Patient Seen: 06/26/22 Diagnoses: 39w6d gestation Rh positive GBS negative Hx of prior Hospital Course: The pt presented for scheduled repeat on 06/25/22. The surgery was with out complications, and the pt delivered a viable baby boy. , there were no complications. At the time of discharge she was voiding, ambulating, and passing flatus without difficulty. Her lochia was decreasing appropriately. Her pain was well controlled. She will f/u in 1 week for incisionc check. Peripartum Data Infant Delivery Method: Section Procedures: Repeat complications: none [place] 1: Gender: Male Disposition of : home Status at Discharge Cognitive/behavioral status at discharge: oriented Functional status at discharge: independent ambulation Overall status at discharge: patient is progressing back to baseline Time Spent with Patient Time attestation: Total time spent providing and/or coordinating discharge services: Objective Labs 06/26/22 06:19 Labs: Laboratory Results - last 24 hr 06/26/22 06:19 WBC 12.9 H RBC 3.78 L Hgb 11.6 L Hct 33.7 L MCV 89.2 MCH 30.8 MCHC 34.5 RDW 13.4 Plt Count 156 Neut % (Auto) 78.2 H Lymph % (Auto) 13.4 L [place] % (Auto) 7.6 Eos % (Auto) 0.4 L Baso % (Auto) 0.4 Neut # (Auto) 93584 H Lymph # (Auto) 1700 [place] # (Auto) 1000 H Eos # (Auto) 100 Baso # (Auto) 0 Exam Vital Signs (past 8 hours): Oxygen Delivery Method Room Air Resp Auscultation: clear to auscultation bilaterally Cardio Rate: regular rate Rhythm: regular rhythm Heart Sounds: S1 normal, S2 normal and no murmurs GI Inspection: non-distended and incision (dressing c/d/i) Palpation: soft, No guarding and tender (appropriately tender) Auscultation: normal bowel sounds Other: fundus firm and below the umbilicus Extrem Right upper extremity: no edema Discharge Plan Discharge Plan Patient Disposition: Home Discharge orders & Medications Prescriptions: New acetaminophen 325 mg Tablet 650 mg PO Q6H Qty: 60 0RF docusate sodium 100 mg Capsule 100 mg PO DAILY Qty: 30 0RF ibuprofen 600 mg Tablet 600 mg PO Q6H Qty: 60 0RF oxycodone 5 mg Tablet 5 mg PO Q4H PRN (Reason: Pain, Moderate (4-6)) Qty: 30 0RF Continued prenat.vits,gemini,[id number] Tablet 1 tab PO DAILY cetirizine 5 mg Tablet 5 mg PO PRN PRN (Reason: Allergy Symptoms) Follow up/Referrals: Reba Ramirez MD [Physician] - 1 Week Racquel Cadet DO [Primary Care Provider] - Diet/Activity/Treatments Diet: Diet as Tolerated and Regular Skin/Wound/Dressing Care Report to your healthcare provider any signs of infection, such as:: chills, fever, increased pain and unusual drainage Visit Report/Discharge Packet Instructions: DI for Stand Alone Forms: Patient Portal/API, Stroke Signs & Symptoms Discharge Data Primary Care Provider: Racquel Cadet
== END 2022-06-26 16:12 | disposition home or self-care (01) | DRG 788 ==
PROVIDERS: Admitting Provider Family Medicine; PCP Family Medicine; Referring Provider Family Medicine; Visit Provider Family Medicine
PROC: 10D00Z1 Extraction of Products of Conception, Low, Open Approach (ICD-10-PCS; CPT 59514; principal; 2022-06-25 07:45)
DX: O34.211 Maternal care for low transverse scar from previous cesarean delivery (principal); Z3A.39 39 weeks gestation of pregnancy; Z37.0 Single live birth; Z67.20 Type B blood, Rh positive
CPT/HCPCS: 36415; 59050; 59510; 59514; 85025; 86850; 86900; 86901; J0131; J0690; J1885; J2210; J2274; J2405; J2590; J2704

== ENCOUNTER → 2022-07-16 15:01 | Outpatient (CLI) | payer OTHER, SELFPAY | PROVIDERS: PCP Family Medicine; Visit Provider Family Medicine | DX: Z98.891 History of uterine scar from previous surgery (principal) | CPT/HCPCS: 87070; 87075; 87077; 87186; 87205 ==

== ENCOUNTER → 2022-09-22 14:05 | Outpatient (CLI) | payer OTHER, SELFPAY ==
--- NOTE | 2022-09-22 14:06 | DI.US.S_ITS ---
PROCEDURE: US PELVIC COMPLETE INDICATIONS: post bleeding TECHNIQUE: Real-time scanning was performed of the pelvic organs, with image documentation. Additional endovaginal scanning was necessary due to incomplete visualization of the adnexal and endometrial structures by transabdominal scanning. COMPARISON: [facility], , [facility], 05/17/2022, 16:54. FINDINGS: Uterus: Uterus is anteverted and normal in size at 7.0 x 6.0 x 4.6 cm. The myometrium is homogeneous. The endometrium measures 7 mm combined thickness. Small areas of calcification are noted within the endometrium. Ovaries: The right ovary measures 4.1 x 1.8 x 4.1 cm, with a calculated ovarian volume of 16 cc. The left ovary measures 3.8 x 1.9 x 3.5 cm, with a calculated ovarian volume of 13 cc. The ovaries have a normal sonographic appearance. Less than 12 follicles can be seen in each ovary. No adnexal masses are seen. Other: No pathologic free abdominal or pelvic fluid. IMPRESSION: Small areas of calcification within the endometrium overall nonspecific. We strive to produce accurate, complete, and clear reports of imaging services. To assist us in improving patient care, this report was composed using standard report templates and voice recognition software. Therefore, it may contain abnormal punctuation, insertions and/or omissions. Occasional wrong-word or sound-alike substitutions may occur. Though we review the report and make efforts to correct it, we do recommend that the report be read carefully in proper context to recognize any text inaccuracies. Dictated by: Elizabeth Lopez M.D. on 09/22/2022 at 16:46 Approved by: Elizabeth Lopez M.D. on 09/22/2022 at 16:47
== END ==
PROVIDERS: PCP Family Medicine; Referring Provider Family Medicine; Visit Provider Family Medicine
DX: O72.1 Other immediate postpartum hemorrhage (principal)
CPT/HCPCS: 76830; 76856